=== PATIENT | male | born 1950 | race Caucasian/White ===

== ENCOUNTER 2019-01-05 08:46 | Day surgery (SDC) ==
[2018-12-30 14:17] LABS: URINE SOURCE CLEAN CATCH
[2018-12-30 14:20] LABS: BASO# 0.06 X1000 (0.0-0.2); BASO% 0.8 % (0.0-0.8); EOS% 6.3 % (0.0-10.0); HEMATOCRIT 39.8 % (42.0-52.0); HEMOGLOBIN 13.8 g/dL (14.0-18.0); LYMPH# 2.42 X1000 (1.2-3.4); LYMPH% 30.6 % (20.5-51.1); MCH 31.8 PG (27-31); MCHC 34.7 g/dL (33-37); MCV 91.7 FL (81-99); MONO# 0.82 X1000 (0.11-0.59); MONO% 10.4 % (1.7-9.3); MPV 8.9 FL (7.4-10.4); NEUT% 51.9 % (42.2-75.2); PLT 343 X1000 (130-400); RBC 4.34 XMIL (4.7-6.1); RDW 11.7 % (11.5-14.5)
[2018-12-30 14:22] LABS: BILIRUBIN URINE NEGATIVE (NEGATIVE); BLOOD URINE NEGATIVE (NEGATIVE); COLOR YELLOW; GLUCOSE URINE NEGATIVE (NEGATIVE); KETONE URINE NEGATIVE (NEGATIVE); LEUKOCYTES URINE NEGATIVE (NEGATIVE); NITRITE URINE NEGATIVE (NEGATIVE); PH URINE 6.5; PROTEIN URINE NEGATIVE (NEGATIVE); SP GRAVITY URINE 1.001; TURBIDITY URINE CLEAR (CLEAR); UROBILINOGEN URINE NORMAL (NORMAL)
[2018-12-30 14:25] LABS: UR EPITHELIAL CELLS <10 /HPF (<10); URINE BACTERIA NEGATIVE /HPF; URINE RBC <10 /HPF (<10); URINE WBC <10 /HPF (<10)
[2018-12-30 14:30] LABS: INR 0.92; PROTIME 13.1 Seconds (11.0-16.0)
[2018-12-30 14:31] LABS: PTT 33.2 Seconds (22.3-41.8)
[2018-12-30 14:37] LABS: AGAP 10; BUN 12 mg/dL (8-22); CALCIUM 9.9 mg/dL (8.8-10.2); CHLORIDE 102 mmol/L (98-107); COSMO 278; CREATININE 0.7 mg/dL (0.7-1.2); ESTIMATED GFR > 60; GLUCOSE 85 mg/dL (70-104); POTASSIUM 4.3 mmol/L (3.5-5.1); SODIUM 140 mmol/L (136-145); TCO2 28 mmol/L (25-35)
--- NOTE | 2018-12-30 15:31 | EKG Report ---
Test Performed on : 12/30/2018 1:31:16 PM Test Reason : PAT Blood Pressure : / mmHG Vent. Rate : 086 BPM Atrial Rate : 086 BPM P-R Int : 152 ms QRS Dur : 082 ms QT Int : 370 ms P-R-T Axes : 074 057 073 degrees QTc Int : 442 ms Normal sinus rhythm. with sinus arrhythmia. Normal ECG No previous ECGs available Confirmed by Escobar ESTRADA, Jignesh Granda ([id number]) on 12/31/2018 9:06:10 AM
[2019-01-05] MEDS ORDERED: DIPRIVAN 1% 500 MG/50 ML BOTTLE ONE (08:49)
[2019-01-05] MEDS ORDERED: FENTANYL ONE (08:49)
[2019-01-05] MEDS ORDERED: ROBINUL ONE (09:08)
[2019-01-05] MEDS ORDERED: XYLOCAINE-MPF 2% ONE (09:08)
[2019-01-05] MEDS ORDERED: DECADRON ONE (09:08)
[2019-01-05] MEDS ORDERED: VERSED ONE (09:12)
[2019-01-05] MEDS ORDERED: COLACE ONE (09:47)
[2019-01-05] MEDS ORDERED: PEPCID ONE (09:47)
[2019-01-05] MEDS ORDERED: LR 1,000 ML ONE (09:48)
[2019-01-05] MEDS ORDERED: KEFZOL 1 GM/D5W 2 GM/100 ML IVPB ONE (09:48)
[2019-01-05] MEDS ORDERED: CELEBREX ONE (09:48)
[2019-01-05] MEDS ORDERED: REGLAN ONE (09:48)
[2019-01-05] MEDS ORDERED: LYRICA ONE (09:48)
[2019-01-05] MEDS ORDERED: ZOFRAN ONE ×2 (10:40→12:03)
[2019-01-05] MEDS ORDERED: MARCAINE 0.25% PF/EPI 1:200,000 ONE (11:05)
[2019-01-05] MEDS ORDERED: DURAMORPH ONE (11:05)
[2019-01-05] MEDS ORDERED: TORADOL ONE (11:05)
[2019-01-05] MEDS ORDERED: VANCOMYCIN ONE (11:05)
[2019-01-05] MEDS ORDERED: SODIUM CHLORIDE 0.9% ONE (11:06)
[2019-01-05] MEDS ORDERED: NEOSPORIN G.U. IRRIGANT ONE (11:06)
[2019-01-05] MEDS ORDERED: EXPAREL 1.3% ONE (11:06)
[2019-01-05] MEDS: CYKLOKAPRON 1,000 MG/NS 2,000 MG/200 ML IVPB ONE ×2 (12:00→13:25)
[2019-01-05] MEDS ORDERED: OFIRMEV 1000 MG/ISOTONIC SOLN 1,000 MG/100 ML BOTTLE ONE (12:03)
[2019-01-05] MEDS ORDERED: SODIUM CHLORIDE 0.9% 10 ML ONE (13:02)
[2019-01-05] MEDS ORDERED: EPHEDRINE ONE (13:02)
[2019-01-05 13:25] LABS: URINE SOURCE CATH
[2019-01-05 13:34] LABS: BILIRUBIN URINE NEGATIVE (NEGATIVE); BLOOD URINE NEGATIVE (NEGATIVE); COLOR YELLOW; GLUCOSE URINE NEGATIVE (NEGATIVE); KETONE URINE NEGATIVE (NEGATIVE); LEUKOCYTES URINE NEGATIVE (NEGATIVE); NITRITE URINE NEGATIVE (NEGATIVE); PROTEIN URINE 30 mg/dL (NEGATIVE); SP GRAVITY URINE 1.019; TURBIDITY URINE CLEAR (CLEAR); UROBILINOGEN URINE NORMAL (NORMAL)
[2019-01-05] MEDS ORDERED: DIPRIVAN 1% ONE (13:41)
[2019-01-05 13:44] LABS: UR EPITHELIAL CELLS >10 /HPF (<10); URINE BACTERIA NEGATIVE /HPF; URINE RBC <10 /HPF (<10); URINE WBC <10 /HPF (<10)
[2019-01-05 13:47] LABS: URINE SMALL ROUND CELLS RENAL PRESENT
[2019-01-05] MEDS ORDERED: NS 1,000 ML ONE (14:22)
--- NOTE | 2019-01-05 14:45 | Diag Imaging Result Doc PS360 ---
EXAM: KNEE 1-2 VIEWS-RIGHT 01/05/2019 HISTORY: Right total knee TECHNIQUE: AP and lateral right knee COMMENT: There is a total knee arthroplasty. There is no evidence of acute fracture or dislocation. No other definite bony abnormalities are present. IMPRESSION: Postsurgical change. Electronically signed by Zan Davenport 01/05/2019 2:43 PM
[2019-01-05] MEDS ORDERED: OXY IR PO PRN ×2 (15:00)
[2019-01-05] MEDS ORDERED: NS 1,000 ML IV SCH (15:00)
[2019-01-05] MEDS ORDERED: MORPHINE IV PRN ×2 (15:00)
[2019-01-05] MEDS ORDERED: ZOFRAN PO PRN (15:00)
--- NOTE | 2019-01-05 15:10 | OPERATIVE NOTE ---
PROCEDURE DATE: 01/05/2019 PREOPERATIVE DIAGNOSIS: Degenerative osteoarthritis of the right knee. POSTOPERATIVE DIAGNOSIS: Degenerative osteoarthritis of the right knee. PROCEDURE: Right total knee arthroplasty with DePuy Attune size 4, posterior stabilized femur, size 4 tibial tray, 10 mm rotating platform tibial insert, and a 35 mm medialized anatomic patella. SURGEON: Ole Boone MD. SPA EXPERIENCE COORDINATOR: Trenton Yadav SECOND TOOL MACHINE SET UP OPERATOR: Mor Mejia RN. ANESTHESIA: Spinal. IV FLUIDS: 2000 mL lactated Ringer's. ESTIMATED BLOOD LOSS: 50 mL. TOURNIQUET TIME: 110 minutes at 300 mmHg. COMPLICATIONS: None. INDICATIONS: Patient is a pleasant 68-year-old male with a chronic history of worsening pain and discomfort in his right knee. X-rays revealed degenerative osteoarthritis of the right knee, and recommendation to proceed with right total knee arthroplasty was offered. The risks and benefits of surgery were explained, including the risks of anesthesia, , bleeding, infection, failure to relieve pain, postop stiffness, nerve injury, blood clots, and other imponderables. All questions were answered. The patient wished to proceed with surgery. DETAILS OF OPERATION: The patient was taken to the operating room and placed supine on the operating table. Once adequate anesthesia was obtained, the patient's right lower extremity was subsequently prepped and draped in usual sterile fashion. Esmarch was used to exsanguinate the right lower extremity. Tourniquet was inflated to 300 mmHg. A standard anterior incision made with skin knife. Medial and lateral skin envelopes were developed. A standard medial parapatellar arthrotomy was then performed. Patella fat pad was excised. Retractors were then placed. Approximately 1 cm anterior to the PCL insertion, a starting reamer was passed. Intramedullary guide with a distal femoral cutting block was pinned in position. Distal femoral cut was then performed in a standard fashion. The sizing block was placed and measured to a size 4. Corresponding pins were placed. A size 4 cutting block was pinned in position. Anterior, posterior, and chamfer cuts were then made. Prior to this, the patella was everted and resected in a standard fashion. A protective disk was then placed into position. Attention was then turned back to the proximal tibia. Using the extramedullary guide, the proximal tibia cutting block was pinned in position. The proximal tibia had good alignment and confirmed with the alignment latosha. The proximal tibia was then resected. Medial and lateral menisci were excised. A curved osteotome was used to remove the posterior osteophytes of the distal femur. A spacer block was then placed, and had good soft tissue balance in both flexion and extension. Attention turned back to the proximal tibia where a size 4 tibial tray appeared to be the correct size. This was pinned in position. This followed by a central reamer and a fin punch. A box cutting guide was pinned and placed on the distal femur. A box cut was performed. The trial femoral component was then placed, and 2 lug holes were drilled. Trial tibial insert was then placed, and had good soft tissue balancing. The patella was everted, and a size 35 appeared to be the correct size. Guide was placed in position, and the 3 holes were drilled. The trial patella component was then placed. The patella was reduced, carried through range of motion, and had good patellofemoral tracking. The trial components were then removed. Copious irrigation was then performed with antibiotic pulsatile lavage while vancomycin was mixed with cement on back table. Sequential cementing was then performed first with the tibial tray, and excess cement was removed with a Blair followed by the femoral component and excess cement was removed with the Blair followed by trial tibial insert in full extension and axial loading was maintained while cement cured. Patella was cemented in a standard fashion. Patella clamp was placed. While the cement was curing, the Exparel was placed in deep soft tissue as well as the subcutaneous tissue. Exparel was placed in deep soft tissue as well as the subcutaneous tissue while the cement was curing. After cement had cured, peripheral cement was removed with small osteotome. A 10 mm rotating platform tibial insert appeared to be the correct size. The trial insert was removed. Exparel was placed in the deep posterior capsule. The wound was copiously irrigated with antibiotic pulsatile lavage. A size 10 rotating platform tibial insert was then placed. The knee was carried through range of motion. Good range of motion, good soft tissue balancing, and good patellofemoral tracking. A 1/8 Hemovac drain was placed and was not sewn in. Copious irrigation performed once again with antibiotic pulsatile lavage. Number 1 Vicryl was used to repair the arthrotomy, followed by 2-0 Vicryl to repair the subcutaneous tissue, and skin bhargavi. Adaptic, sterile 4 x 4's, Webril, cryo unit, and Chilo wrap was applied to the right lower extremity. Patient tolerated the procedure well, and was transferred to the recovery room in stable condition. cc: Ole Boone MD
[2019-01-05] MEDS: PERIDEX MT SCH (20:35)
[2019-01-05] MEDS: MORPHINE IV PRN ×2 (20:35→23:39)
[2019-01-05] MEDS: KEFZOL 2 GM/D5W 2 GM/50 ML IVPB IV SCH (23:40)
[2019-01-06] MEDS: KEFZOL 2 GM/D5W 2 GM/50 ML IVPB IV SCH ×2 (05:32→07:53)
[2019-01-06] MEDS ORDERED: XARELTO PO SCH (06:00)
[2019-01-06 06:18] LABS: HEMATOCRIT 35.3 % (42.0-52.0); HEMOGLOBIN 12.2 g/dL (14.0-18.0)
[2019-01-06 06:21] LABS: AGAP 12; BUN 11 mg/dL (8-22); CALCIUM 8.9 mg/dL (8.8-10.2); CHLORIDE 103 mmol/L (98-107); COSMO 280; CREATININE 0.7 mg/dL (0.7-1.2); ESTIMATED GFR > 60; GLUCOSE 124 mg/dL (70-104); POTASSIUM 4.2 mmol/L (3.5-5.1); SODIUM 140 mmol/L (136-145); TCO2 25 mmol/L (25-35)
[2019-01-06] MEDS ORDERED: CENTRUM SILVER PO SCH (09:45)
[2019-01-06] MEDS ORDERED: PATIENT'S OWN MED PO SCH (09:45)
[2019-01-06] MEDS ORDERED: PATIENT'S OWN MED TOP SCH (09:45)
[2019-01-06] MEDS ORDERED: KENALOG 0.1% CREAM TOP SCH (09:45)
[2019-01-06] MEDS: PERIDEX MT SCH (11:02)
--- NOTE | 2019-01-06 11:26 | ORTHOPAEDICS PROGRESS NOTE ---
DATE: 01/06/2019 SUBJECTIVE: The patient is a 68-year-old male who is 1 day status post right total knee arthroplasty. He is currently resting comfortably. OBJECTIVE: Extremities: On physical examination, the patient's right lower extremity and dressing is intact. His calf is soft. He has active dorsiflexion and plantar flexion. LABORATORY DATA: His hemoglobin is 12.2, hematocrit is 35.3. IMPRESSION: Postoperative day #2 status post right total knee arthroplasty. PLAN: At this point, we will change his dressing. We will begin mobilization with physical therapy. We will plan on discharging home later today if he is mobilizing well. We will arrange for home physical therapy. cc: Ole Boone MD
[2019-01-06 12:21] VITALS: BP 151/96
[2019-01-06] MEDS ORDERED: MAXZIDE-25 PO SCH (21:00)
[2019-01-06] MEDS ORDERED: ZOCOR PO SCH (21:00)
[2019-01-07] MEDS ORDERED: NIZORAL 2% SHAMPOO TOP SCH (09:00)
[2019-01-07] MEDS ORDERED: PATIENT'S OWN MED PO SCH (09:00)
[2019-01-10] MEDS ORDERED: PATIENT'S OWN MED SUBQ SCH (09:00)
== END 2019-01-06 14:51 | disposition home or self-care (01) ==
LOC: 4N 08:46 → OR 08:46
PROVIDERS: ATTEND Orthopaedic Surgery Adult Reconstructive Orthopaedic Surgery
CPT/HCPCS: 73560; 80048; 81001; 85014; 85018; 85025; 85610; 85730; 86850; 86900; 86901; 88305; 88311; 93005; 93010; 94761; 94799; 97110; 97116; 97162; A9270; C9290; J0131; J0690; J1100; J1885; J2250; J2270; J2274; J2275; J2405; J3010; J3370; J7030; J7120; Q9974; S0020